=== PATIENT | female | born 1970 | race Caucasian/White ===

== ENCOUNTER 2016-06-19 06:34 | Day surgery (SDC) | payer OTHER ==
[~2016-06-19 06:34] MED LIST: IBUPROFEN400 MG PO
--- NOTE | 2016-06-19 10:26 | Provider's Discharge Care Plan ---
Problem, Goal, Plan Problem List 1. Exostosis of bone of foot Goals: Improve function Instructions: Follow up as directed, Take meds as directed
--- NOTE | 2016-06-19 10:26 | Provider's Discharge Care Plan ---
Problem, Goal, Plan Problem List 1. Exostosis of bone of foot Goals: Improve function Instructions: Follow up as directed, Take meds as directed
--- NOTE | 2016-06-19 11:17 | OPERATIVE REPORT ---
DATE OF SURGERY: 06/19/2016 SURGEON: Apolinar Marie DPM PRINCIPAL GIFTS OFFICER: None. PREOPERATIVE DIAGNOSIS: 1. Painful exostosis, left midfoot POSTOPERATIVE DIAGNOSIS: 1. Painful exostosis, left midfoot PROCEDURE PERFORMED: 1. Resection of exostosis, left midfoot ANESTHESIA: General via LMA. ESTIMATED BLOOD LOSS: Less than 10 mL PATHOLOGY SPECIMEN: None. DRAINS: None. IMPLANTS: None. INDICATIONS: The patient is a 45-year-old female with a chief complaint of a painful bone exostosis on the dorsal lateral aspect of the left midfoot following a fracture of the left fifth metatarsal 2 or 3 years ago. The exostosis is painful with any pressure from shoes, etc. The patient now desires surgical resection of the painful exostosis in attempt to relieve her pain associated with the spur. SURGICAL TECHNIQUE: The patient was brought to the operating room and placed on the operating table in the supine position. General anesthesia was then administered via LMA. Local anesthesia was then achieved via the injection of 10 mL of a 1:1 mix of 1% lidocaine plain and 0.5% Marcaine plain in the form of a field block to the dorsal lateral aspect of the left midfoot. The left lower extremity was then prepped and draped in the usual sterile orthopedic fashion. The left foot and ankle were then exsanguinated with an Esmarch bandage and a previously-placed well-padded left ankle tourniquet was inflated to 250 mmHg pressure to provide hemostasis during the procedure. The Esmarch bandage was then removed, and attention was directed to the dorsal aspect of the left fifth metatarsal base. A linear incision was made, measuring approximately 2.0 cm in length. The incision was deepened by means of careful blunt and sharp dissection, with care taken to clamp and cauterize small bleeders as necessary. The incision was deepened down to the osseous tissue of the palpable exostosis on the dorsal aspect of the left fifth metatarsal base. The periosteal elevator was utilized to free the periosteal layer overlying the exostosis. Then utilizing a power bone saw, the exostosis was resected. The resected surface was rasped smooth. The surgical site was copiously flushed with sterile saline. The deep and superficial layers were closed with 4-0 Polysorb suture. The skin incision was reapproximated and closed with a running subcuticular stitch of 4-0 Biosyn and Steri-Strips. The surgical site was then dressed with bacitracin ointment, Adaptic, 4 x 4 gauze, Conform, and a lightly placed Angelito bandage. The left ankle tourniquet was deflated after a total of 36 minutes of tourniquet time, and a normal hyperemic reaction was noted to take place in the left foot and all digits of the left foot. The patient tolerated the anesthesia and procedure well and left the operating room in apparent satisfactory condition. The patient was taken to the recovery room where she had an uneventful recovery. The patient will be followed for her postoperative care as an outpatient in my office.
== END 2016-06-19 12:03 | disposition home or self-care (01) ==
LOC: OR SRH 06:34 → SCU SRH 06:37
PROVIDERS: Podiatrist
PROC: 0QBP0ZX Excision of Left Metatarsal, Open Approach, Diagnostic (ICD-10-PCS; principal; 2016-06-19 09:00)
DX: M89.9 Disorder of bone, unspecified (principal); Z72.0 Tobacco use
CPT/HCPCS: 29229; 29240; 50004; 60001; 70002; 80212; 80575; 83266; 83414; 84038; 84042; 84045; 95059